=== PATIENT | male | born 2005 | race Caucasian/White ===

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

== ENCOUNTER 2025-02-13 16:34 | Emergency (ER) | payer OTHER ==
[2025-02-13] MEDS ORDERED: Bacitracin 1 PK ONE (17:04)
[2025-02-13] MEDS ORDERED: Lidocaine 1% PF 5 ML VIAL ONE (17:04)
[2025-02-13] MEDS ORDERED: Cephalexin 500 MG CAP ONE (17:33)
== END 2025-02-13 17:43 | disposition home or self-care (01) ==
LOC: MADERS 16:34
DX: S61.213A Laceration without foreign body of left middle finger without damage to nail, initial encounter (principal); X19.XXXA Contact with other heat and hot substances, initial encounter; Y99.0 Civilian activity done for income or pay
CPT/HCPCS: 12001; 99282

== ENCOUNTER 2025-03-23 07:33 | Emergency (ER) | payer OTHER ==
[2025-03-23] MEDS ORDERED: Ibuprofen 600 MG TAB ONE (07:47)
== END 2025-03-23 07:58 | disposition home or self-care (01) ==
LOC: MADERS 07:33
DX: J11.1 Influenza due to unidentified influenza virus with other respiratory manifestations (principal); E10.9 Type 1 diabetes mellitus without complications; Z79.4 Long term (current) use of insulin
CPT/HCPCS: 99283